=== PATIENT | male | born 1995 | race Caucasian/White ===

== ENCOUNTER 2020-04-09 07:21 | Emergency (ER) | payer OTHER ==
[~2020-04-09] VITALS: Ht 180.3 cm; Wt 95.3 kg
[2020-04-09 07:27] VITALS: BP 130/70; Ht 180.3 cm; Wt 95.3 kg
== END 2020-04-09 08:33 | disposition home or self-care (01) ==
LOC: ED 07:21
DX: M25.511 Pain in right shoulder (principal)
CPT/HCPCS: 82962